=== PATIENT | male | born 1955 | race Caucasian/White ===

== ENCOUNTER → 2022-07-01 | Outpatient (CLI) | payer OTHER, MEDICARE | END | disposition home or self-care (01) | LOC: LAB SHORT 18:52 | DX: T14.8XXA Other injury of unspecified body region, initial encounter (principal); W54.8XXA Other contact with dog, initial encounter | CPT/HCPCS: 87070; 87075; 87205 ==

== ENCOUNTER → 2022-07-06 | Outpatient (CLI) | payer MEDICARE | END | disposition home or self-care (01) | LOC: LAB 16:27 → LAB SHORT 16:27 | DX: T14.8XXA Other injury of unspecified body region, initial encounter (principal) | CPT/HCPCS: 87070; 87075; 87205 ==

== ENCOUNTER 2022-12-20 09:11 | Day surgery (SDC) | payer OTHER ==
[~2022-12-20] VITALS: Ht 185.4 cm; Wt 114.0 kg
[~2022-12-20 09:11] MED LIST: ALBU90OI INH; AMLO5 PO; ATOR40TA PO; ELIQUIS5 M2 PO; FAMO10 PO; GABA300 PO; LORA2 PO; MELATONIN5 M1 PO; SIMETHICONE125 MG PO; ZESTRIL40 M1 PO
[2022-12-20 10:47] VITALS: BP 147/76
[2022-12-20 10:47] LABS: Hematocrit 38.2 % (37.0-53.0); Hemoglobin 12.7 g/dL (13.5-17.5); Mean Corpuscular HGB 30.5 pg (26.0-34.0); Mean Corpuscular HGB Conc 33.2 g/dL (31.5-36.5); Mean Corpuscular Volume 92 fL (80-100); Platelet Count 187 K/mm3 (150-400); RDW Coefficient Variation 15.3 % (11.7-14.2); RDW Standard Deviation 51.9 fL (35.1-46.3); Red Blood Cell Count 4.16 M/mm3 (4.30-5.90); White Blood Cell Count 7.59 K/mm3 (4.00-11.30)
[2022-12-20 10:58] LABS: International Normalized Ratio 1.06; Prothrombin Time Results 11.1 Sec (9.7-11.5)
[2022-12-20 10:59] VITALS: BP 47/67
[2022-12-20 11:14] LABS: Albumin, Blood 4.1 g/dL (3.4-5.0); Albumin/Globulin Ratio 1.1 (0.8-1.8); Bilirubin, Total 0.6 mg/dL (0.1-1.0); Bun/Creatinine Ratio 17.6 (12.0-20.0); Calcium, Blood 9.2 mg/dL (8.5-10.1); Creatinine, Blood 0.91 mg/dL (0.60-1.20); Globulin, Blood 3.9 g/dL (2.2-4.0); Potassium, Blood 4.5 mmol/L (3.5-5.5)
[2022-12-20 13:10] VITALS: BP 161/63
[2022-12-20 13:15] VITALS: BP 121/72
--- NOTE | 2022-12-20 13:15 | NUR ---
PATIENT SITTING UPRIGHT IN RECLINER, CONVERSING APPROPRIATELY. VSS ON RA. R VENOUS SITE C/D/I WITH TEGADERM. PATIENT DENYING ANY PAIN.
[2022-12-20 13:30] VITALS: BP 115/102
--- NOTE | 2022-12-20 14:00 | NUR ---
PATIENT SITTING UPRIGHT IN RECLIONER TOLREATING PO INTAKE WELL. R AC VENOUS ACCESS C/D/I SOFT/NONTENDER, NO EVIDENCE OF BLEEDING. VSS ON RA.
--- NOTE | 2022-12-20 14:10 | NUR ---
PIV REMOVED WITHOUT DIFFICULTY, CATHETER INTACT.
--- NOTE | 2022-12-20 14:15 | NUR ---
PATIENT DISCHARGED HOME AT THIS TIME. ALL PATIENT BELONGINGS AND PAPERWORK LEFT WITH PATIENT. DISCHARGE INSTRUCTIONS REVIEWED WITH PATIENT AND SPOUSE.
== END 2022-12-20 14:15 | disposition home or self-care (01) ==
LOC: MHTC 09:11
PROVIDERS: Internal Medicine Cardiovascular Disease
DX: I27.20 Pulmonary hypertension, unspecified (principal); I42.9 Cardiomyopathy, unspecified; I25.10 Atherosclerotic heart disease of native coronary artery without angina pectoris; I10 Essential (primary) hypertension; E78.5 Hyperlipidemia, unspecified; I48.19 Other persistent atrial fibrillation; J44.9 Chronic obstructive pulmonary disease, unspecified; E66.01 Morbid (severe) obesity due to excess calories; Z87.891 Personal history of nicotine dependence; Z95.1 Presence of aortocoronary bypass graft
CPT/HCPCS: 80053; 85027; 85610; 93451; A9270; C1769; C1894; J1644; J7030; J7050

== ENCOUNTER 2024-02-18 02:31 | Emergency (ER) | payer OTHER ==
[~2024-02-18] VITALS: Ht 188 cm; Wt 100.7 kg
[2024-02-18 03:09] LABS: BASOPHILS ABSOLUTE AUTO 0.06 K/mm3 (0.00-0.23); BASOPHILS PERCENT AUTO 1 % (0-2); EOSINOPHILS ABSOLUTE AUTO 0.05 K/mm3 (0.00-0.68); EOSINOPHILS PERCENT AUTO 0 % (0-6); Hematocrit 31.1 % (37.0-53.0); IMMATURE GRAN ABSOLUTE AUTO 0.06 K/mm3 (0.00-0.10); IMMATURE GRAN PERCENT AUTO 1 % (0-1); LYMPHOCYTES ABSOLUTE AUTO 0.87 K/mm3 (0.84-5.20); LYMPHOCYTES PERCENT AUTO 8 % (21-46); MONOCYTES ABSOLUTE AUTO 0.74 K/mm3 (0.16-1.47); MONOCYTES PERCENT AUTO 7 % (4-13); Mean Corpuscular HGB 27.4 pg (26.0-34.0); Mean Corpuscular HGB Conc 32.2 g/dL (31.5-36.5); Mean Corpuscular Volume 85 fL (80-100); Mean Platelet Volume 8.8 fL (9.1-12.4); NEUTROPHILS PERCENT AUTO 84 % (41-73); Platelet Count 270 K/mm3 (150-400); RDW Standard Deviation 53.1 fL (35.1-46.3); Red Blood Cell Count 3.65 M/mm3 (4.30-5.90); White Blood Cell Count 11.18 K/mm3 (4.00-11.30)
[2024-02-18 03:33] LABS: Albumin/Globulin Ratio 0.7 (0.8-1.8); Bilirubin, Total 0.8 mg/dL (0.1-1.0); Bun/Creatinine Ratio 11.4 (12.0-20.0); Calcium, Blood 8.7 mg/dL (8.5-10.1); Creatinine, Blood 0.88 mg/dL (0.60-1.20); Globulin, Blood 4.4 g/dL (2.2-4.0); Total Protein, Blood 7.4 g/dL (6.4-8.2)
[2024-02-18] MEDS ORDERED: FentaNYL Citrate 50 MCG/ML 2 ML Injection IV ONE (05:50)
[2024-02-18 06:16] LABS: Source, Urine Clean Catch
[2024-02-18 06:23] LABS: Appearance, Urine Clear (Clear); Bilirubin, Urine Neg (Neg); Blood, Urine 5+ (Neg); Color, Urine Yellow (P-Yellow); Glucose Qualitative, Urine 4+ (Neg); Ketones, Urine 1+ (Neg); Leukocyte Esterase, Urine Neg (Neg); Nitrite, Urine Neg (Neg); Protein, Urine 1+ (Neg); Urobilinogen, Urine NORM (Normal)
[2024-02-18 06:36] VITALS: BP 126/84
[2024-02-18 06:51] LABS: Hyaline Casts 0-2 /lpf (0-2); Mucus Heavy (0-Heavy)
[2024-02-18 06:52] LABS: White Blood Cells, Urine 0-2 /hpf (0-5)
[2024-02-18 06:53] LABS: Squamous Epithelial Cells Rare /hpf (Few)
[2024-02-18 06:54] LABS: Amorphous Light (0-Heavy); Bacteria Few /hpf
== END 2024-02-18 06:55 | disposition home or self-care (01) ==
LOC: ER 02:31
PROVIDERS: Student in an Organized Health Care Education/Training Program
DX: R10.12 Left upper quadrant pain (principal); R10.13 Epigastric pain; R53.83 Other fatigue; Z79.899 Other long term (current) drug therapy; I48.91 Unspecified atrial fibrillation; I25.2 Old myocardial infarction; I10 Essential (primary) hypertension; E11.40 Type 2 diabetes mellitus with diabetic neuropathy, unspecified
CPT/HCPCS: 71045; 74177; 80053; 81001; 84484; 85025; 93005; 93010; 96374-59; 99285-25; J3010; Q9967

== ENCOUNTER 2024-06-12 12:10 | Emergency (ER) | payer OTHER ==
[~2024-06-12] VITALS: Ht 185.4 cm; Wt 99.8 kg
[2024-06-12 12:41] VITALS: BP 125/66
[2024-06-12 14:10] LABS: BASOPHILS ABSOLUTE AUTO 0.09 K/mm3 (0.00-0.23); BASOPHILS PERCENT AUTO 2 % (0-2); EOSINOPHILS ABSOLUTE AUTO 0.25 K/mm3 (0.00-0.68); EOSINOPHILS PERCENT AUTO 4 % (0-6); Hematocrit 30.5 % (37.0-53.0); Hemoglobin 9.8 g/dL (13.5-17.5); IMMATURE GRAN ABSOLUTE AUTO 0.04 K/mm3 (0.00-0.10); IMMATURE GRAN PERCENT AUTO 1 % (0-1); LYMPHOCYTES ABSOLUTE AUTO 0.96 K/mm3 (0.84-5.20); LYMPHOCYTES PERCENT AUTO 16 % (21-46); MONOCYTES ABSOLUTE AUTO 0.62 K/mm3 (0.16-1.47); MONOCYTES PERCENT AUTO 11 % (4-13); Mean Corpuscular HGB 30.2 pg (26.0-34.0); Mean Corpuscular HGB Conc 32.1 g/dL (31.5-36.5); Mean Corpuscular Volume 94 fL (80-100); Mean Platelet Volume 9.5 fL (9.1-12.4); NEUTROPHILS ABSOLUTE AUTO 3.94 K/mm3 (1.96-9.15); NEUTROPHILS PERCENT AUTO 67 % (41-73); Platelet Count 166 K/mm3 (150-400); RDW Coefficient Variation 14.6 % (11.7-14.2); RDW Standard Deviation 50.6 fL (35.1-46.3); Red Blood Cell Count 3.24 M/mm3 (4.30-5.90)
[2024-06-12 14:18] LABS: International Normalized Ratio 2.45; Prothrombin Time Results 24.5 Sec (9.7-11.5)
[2024-06-12 14:20] LABS: Albumin, Blood 3.8 g/dL (3.4-5.0); Bilirubin, Total 0.5 mg/dL (0.1-1.0); Bun/Creatinine Ratio 21.5 (12.0-20.0); Calcium, Blood 9.1 mg/dL (8.5-10.1); Creatinine, Blood 1.3 mg/dL (0.60-1.20); Globulin, Blood 3.7 g/dL (2.2-4.0); Potassium, Blood 4.7 mmol/L (3.5-5.5); Total Protein, Blood 7.5 g/dL (6.4-8.2)
== END 2024-06-12 16:28 | disposition home or self-care (01) ==
LOC: ER 12:10
PROVIDERS: Emergency Medicine
DX: L29.9 Pruritus, unspecified (principal); I48.91 Unspecified atrial fibrillation; I25.2 Old myocardial infarction; I10 Essential (primary) hypertension; E11.40 Type 2 diabetes mellitus with diabetic neuropathy, unspecified; Z79.01 Long term (current) use of anticoagulants; Z79.899 Other long term (current) drug therapy
CPT/HCPCS: 80053; 85025; 85610; 99282